=== PATIENT | male | born 1980 | race Caucasian/White ===

== ENCOUNTER 2016-04-22 12:10 | Day surgery (SDC) | payer MEDICARE, MEDICAID ==
[~2016-04-22] VITALS: Ht 205.7 cm; Wt 165.9 kg
[~2016-04-22 12:10] MED LIST: ALEVE PO; ATARAX50 MG PO; CEPHALEXIN500 M1 PO; DAZIDOX10 MG PO; DESYREL 50MG50 MG PO; DESYREL DIVIDO150 M1; ELAVIL100 MG; FENTANYL 100MCG TOP; FLEXERIL; FLOMAX 0.40.4 MG/CAP PO; HCTZ 25MG TAB25 MG PO; LAMISIL250 M1; LASIX 40MG TABL40 MG PO; LEXAPRO20 MG; LORTAB 7.5/5001 TAB PO; LYRICA 50MG CAP50 MG PO; MAG-OX 400400 MG/TAB PO; MIRALAX PA17 GM/Dose PO; NO HOME MEDICATIONS; PERCOCET 325 MG1 TA2 PO; PERCOCET 325 MG1 TAB PO; PREDNISONE10 MG; PRINIVIL2.5 MG; PROZAC 20MG20 MG PO; VALIUM 5MG T5 MG/TAB PO; VICODIN 5/5001 UDTAB PO; WELLBUTRIN 100100 MG PO; [UNRECOGNIZED DRUG - REMARK]
[2016-04-22 13:22] VITALS: BP 141/69; PULSE 85; TEMP 99.7
[2016-04-22] MEDS ORDERED: ALTACE 5MG5 MG PO (13:26)
[2016-04-22] MEDS ORDERED: VOLTAREN GEL 1%1 TU TP (13:27)
[2016-04-22 18:00] VITALS: BP 113/66; PULSE 96; TEMP 98
[2016-04-22 18:15] VITALS: BP 107/50; PULSE 93
[2016-04-22] MEDS ORDERED: DAZIDOX10 MG PO (18:26)
[2016-12-22] MEDS ORDERED: PERCOCET 325 MG1 TA3 PO (10:11)
[2016-12-22] MEDS ORDERED: PREDNISONE20 MG PO (10:11)
[2016-12-22] MEDS ORDERED: FLEXERIL 1010 MG/TAB PO (10:11)
== END 2016-04-22 18:40 | disposition home or self-care (01) ==
LOC: SDCO 12:10 → SURG 18:31 → SDCO 18:40
DX: K42.0 Umbilical hernia with obstruction, without gangrene (principal); I10 Essential (primary) hypertension
CPT/HCPCS: OP; C1713; C1781; J0690; J1100; J1170; J1885; J2175; J2270; J2370; J2405; J2704; J2710; J3010; J7120

== ENCOUNTER 2016-07-29 21:02 | Emergency (ER) | payer MEDICARE, MEDICAID ==
[~2016-07-29] VITALS: Ht 205.7 cm; Wt 165.9 kg
[~2016-07-29 21:02] MED LIST changes: +ALTACE 5MG5 MG PO; +VOLTAREN GEL 1%1 TU TP
[2016-07-29 21:06] VITALS: TEMP 99.5
[2016-07-29 21:49] LABS: PH 6 (5-8); SQUAMOUS EPITHELIAL None Seen /hpf; URINE APPEARANCE Clear; URINE BACTERIA None Seen /hpf; URINE BILIRUBIN Negative (NEGATIVE); URINE BLOOD Negative (NEGATIVE); URINE COLOR Yellow; URINE GLUCOSE Negative (NEGATIVE); URINE KETONE Negative (NEGATIVE); URINE RBC 0-2 /hpf; URINE UROBILINOGEN Negative (NEGATIVE); URINE WBC 0-2 /hpf
[2016-07-29 22:17] LABS: BASO # 0.1 (0.0-0.2); BASO % 0.3 % (0.0-2.0); EOS # 0.2 (0.0-0.7); GRAN # 13.1 (1.4-6.5); GRAN % 71.8 % (42.2-75.2); HEMATOCRIT 43.5 % (42.0-52.0); HEMOGLOBIN 14.7 g/dl (13.5-18.0); LYMPH # 3.7 (1.2-3.4); MEAN CELL VOLUME 87 fl (80.0-100.0); MEAN CORPUSCULAR HEMOGLOBIN 30 pg (27.0-31.0); MEAN CORPUSCULAR HGB CONC 34 g/dl (33.0-37.0); MONO # 1.2 (0.1-0.6); MONO % 6.5 % (1.7-9.3); PLATELET COUNT 337 K/mm3 (130-400); RED BLOOD COUNT 4.99 M/mm3 (4.20-5.60); REDCELL DISTRIBUTION WIDTH-CV 12.5 % (11.5-14.5); WHITE BLOOD COUNT 18.3 K/mm3 (4.8-10.8)
[2016-07-29 22:33] LABS: ADJUSTED CALCIUM 9.4 mg/dL (8.4-10.2); ALBUMIN 4.4 gm/dL (3.5-5.0); BILIRUBIN,TOTAL 0.7 mg/dL (0.0-1.0); CALCIUM 9.7 mg/dL (8.4-10.2); CREATININE, serum 0.92 mg/dL (0.66-1.25); POTASSIUM 4.3 mmol/L (3.4-5.0)
[2016-07-29] MEDS ORDERED: CIPRO 500MG TA500 MG PO (23:45)
[2016-07-29] MEDS ORDERED: FLAGYL500 MG PO (23:45)
[2016-07-29] MEDS ORDERED: ZOFRAN ODT4 MG PO (23:45)
[2016-07-29] MEDS ORDERED: PERCOCET 325 MG1 TA2 PO (23:45)
[2016-07-30] LABS: CHLAMYDIA/TRACH by PCR Male NOT DETECTED; Neisseria Gon by PCR Male NOT DETECTED
[2016-07-30 00:01] VITALS: BP 140/82; PULSE 79
[2016-12-22] MEDS ORDERED: FLEXERIL 1010 MG/TAB PO (10:11)
[2016-12-22] MEDS ORDERED: PREDNISONE20 MG PO (10:11)
[2016-12-22] MEDS ORDERED: PERCOCET 325 MG1 TA3 PO (10:11)
== END 2016-07-30 00:01 | disposition home or self-care (01) ==
LOC: COL.ER 21:02
PROVIDERS: Emergency Medicine
DX: K57.32 Diverticulitis of large intestine without perforation or abscess without bleeding (principal)
CPT/HCPCS: J1170; J1885; J7030; Q9967

== ENCOUNTER → 2016-09-02 | Outpatient (CLI) | payer MEDICARE, MEDICAID ==
[~2016-09-02] MED LIST changes: +CIPRO 500MG TA500 MG PO; +FLAGYL500 MG PO; +FLEXERIL 1010 MG/TAB PO; +PERCOCET 325 MG1 TA3 PO; +PREDNISONE20 MG PO; +ZOFRAN ODT4 MG PO
== END ==
LOC: MHCPAIN 08:43
DX: G89.29 Other chronic pain (principal); M47.817 Spondylosis without myelopathy or radiculopathy, lumbosacral region; M54.16 Radiculopathy, lumbar region; M96.1 Postlaminectomy syndrome, not elsewhere classified
CPT/HCPCS: G0463

== ENCOUNTER 2017-03-03 10:59 | Emergency (ER) | payer MEDICARE, MEDICAID ==
[~2017-03-03] VITALS: Ht 195.6 cm; Wt 147.7 kg
[2017-03-03 11:01] VITALS: BP 144/86; TEMP 98.1
[2017-03-03] MEDS ORDERED: D3-5050000 IU (11:26)
[2017-03-03 12:00] LABS: COLLECTION METHOD CLEAN CATCH
[2017-03-03 12:09] LABS: BASO % 0.3 % (0.0-2.0); EOS # 0.1 (0.0-0.7); GRAN # 10.6 (1.4-6.5); GRAN % 73.1 % (42.2-75.2); HEMOGLOBIN 15.8 g/dl (13.5-18.0); LYMPH # 2.7 (1.2-3.4); LYMPH % 18.6 % (20.0-51.0); MEAN CELL VOLUME 89 fl (80.0-100.0); MEAN CORPUSCULAR HEMOGLOBIN 29 pg (27.0-31.0); MEAN CORPUSCULAR HGB CONC 32 g/dl (33.0-37.0); MONO % 6.6 % (1.7-9.3); PLATELET COUNT 349 K/mm3 (130-400); WHITE BLOOD COUNT 14.5 K/mm3 (4.8-10.8)
[2017-03-03 12:15] LABS: MUCOUS Present /lpf; PH 6 (5-8); SQUAMOUS EPITHELIAL None Seen /hpf; URINE APPEARANCE Clear; URINE BACTERIA None Seen /hpf; URINE BILIRUBIN Negative (NEGATIVE); URINE BLOOD Negative (NEGATIVE); URINE COLOR Yellow; URINE GLUCOSE Negative (NEGATIVE); URINE KETONE Negative (NEGATIVE); URINE LEUKOCYTE ESTERASE Negative (NEGATIVE); URINE PROTEIN(semi-quant) Negative (NEGATIVE); URINE RBC 0-2 /hpf; URINE WBC 0-2 /hpf
[2017-03-03 12:21] LABS: ADJUSTED CALCIUM 9.2 mg/dL (8.4-10.2); ALBUMIN 4.8 gm/dL (3.5-5.0); BILIRUBIN,TOTAL 0.9 mg/dL (0.0-1.0); CALCIUM 9.8 mg/dL (8.4-10.2); CREATININE, serum 0.95 mg/dL (0.66-1.25); POTASSIUM 3.9 mmol/L (3.4-5.0); TOTAL PROTEIN 8.5 gm/dL (6.4-8.2)
[2017-03-03 14:00] LABS: CHLAMYDIA/TRACH by PCR Male NOT DETECTED; Neisseria Gon by PCR Male NOT DETECTED
[2017-03-03] MEDS ORDERED: DULCOLAX STOOL100 MG PO (14:06)
[2017-03-03] MEDS ORDERED: CIPRO 500MG TA500 MG PO (14:06)
[2017-03-03] MEDS ORDERED: NORCO 325 MG-51 TAB PO (14:06)
[2017-03-03] MEDS ORDERED: FLAGYL500 MG PO (14:06)
[2017-03-03 14:50] VITALS: PULSE 71
== END 2017-03-03 14:53 | disposition home or self-care (01) ==
LOC: COL.ER 10:59
PROVIDERS: Emergency Medicine
DX: K57.92 Diverticulitis of intestine, part unspecified, without perforation or abscess without bleeding (principal); M54.9 Dorsalgia, unspecified; G89.29 Other chronic pain; Z87.442 Personal history of urinary calculi; Z90.49 Acquired absence of other specified parts of digestive tract
CPT/HCPCS: J1170; J2270; J2405; J7030; Q9967

== ENCOUNTER 2017-11-17 20:38 | Emergency (ER) | payer MEDICARE, MEDICAID ==
[~2017-11-17] VITALS: Ht 205.7 cm; Wt 138.6 kg
[~2017-11-17 20:38] MED LIST changes: +D3-5050000 IU; +DULCOLAX STOOL100 MG PO; +NORCO 325 MG-51 TAB PO
[2017-11-17 20:47] VITALS: TEMP 98
[2017-11-17 21:34] LABS: COLLECTION METHOD CLEAN CATCH
[2017-11-17 21:41] LABS: BASO % 0.3 % (0.0-2.0); EOS # 0.3 (0.0-0.7); EOS % 2.1 % (0-4.0); GRAN # 7.2 (1.4-6.5); GRAN % 56.9 % (42.2-75.2); HEMATOCRIT 43.4 % (42.0-52.0); HEMOGLOBIN 14.4 g/dl (13.5-18.0); LYMPH # 3.8 (1.2-3.4); LYMPH % 30.4 % (20.0-51.0); MEAN CELL VOLUME 88 fl (80.0-100.0); MEAN CORPUSCULAR HEMOGLOBIN 29 pg (27.0-31.0); MEAN CORPUSCULAR HGB CONC 33 g/dl (33.0-37.0); MONO # 1.2 (0.1-0.6); MONO % 9.7 % (1.7-9.3); PLATELET COUNT 300 K/mm3 (130-400); RED BLOOD COUNT 4.96 M/mm3 (4.20-5.60); REDCELL DISTRIBUTION WIDTH-CV 12.7 % (11.5-14.5)
[2017-11-17 21:46] LABS: AMORPHOUS CRYSTAL Present /uL; MUCOUS Present /lpf; PH 8 (5-8); SQUAMOUS EPITHELIAL None Seen /hpf; URINE APPEARANCE Turbid; URINE BACTERIA None Seen /hpf; URINE BILIRUBIN Negative (NEGATIVE); URINE BLOOD Negative (NEGATIVE); URINE COLOR Yellow; URINE GLUCOSE Negative (NEGATIVE); URINE KETONE Negative (NEGATIVE); URINE LEUKOCYTE ESTERASE Negative (NEGATIVE); URINE NITRATE Negative (NEGATIVE); URINE PROTEIN(semi-quant) Negative (NEGATIVE); URINE UROBILINOGEN Negative (NEGATIVE)
[2017-11-17 22:01] LABS: BILIRUBIN,TOTAL 0.4 mg/dL (0.0-1.0); C-REACTIVE PROTEIN 0.7 mg/dL (0.0-0.9); CALCIUM 9.6 mg/dL (8.4-10.2); CREATININE, serum 0.92 mg/dL (0.66-1.25); POTASSIUM 4.4 mmol/L (3.4-5.0); TOTAL PROTEIN 7.5 gm/dL (6.4-8.2)
[2017-11-17 22:09] VITALS: BP 167/95; PULSE 69
[2017-11-17] MEDS ORDERED: FLAGYL500 MG PO (22:14)
[2017-11-17] MEDS ORDERED: CIPRO 500MG TA500 MG PO (22:14)
== END 2017-11-17 22:34 | disposition home or self-care (01) ==
LOC: COL.ER 20:38
PROVIDERS: Emergency Medicine
DX: K57.92 Diverticulitis of intestine, part unspecified, without perforation or abscess without bleeding (principal)

== ENCOUNTER 2018-09-27 09:25 | Inpatient (IN) | payer MEDICARE, MEDICAID ==
[~2018-09-27] VITALS: Ht 205.7 cm; Wt 133.4 kg
[~2018-09-27 09:25] MED LIST changes: +MEDROL 4MG DOSPA4 MG PO; +NORCO 325 MG-7.1 TAB PO; +ULTRAM 50MG TAB50 MG PO
[2018-10-13] VITALS (13 sets, daily range): BP systolic 125–169; BP diastolic 59–87; PULSE 61–93; TEMP 98–99.1
[2018-10-13 10:40] LABS: HEMATOCRIT 40.9 % (42.0-52.0); HEMOGLOBIN 13.1 g/dl (13.5-18.0); MEAN CELL VOLUME 86 fl (80.0-100.0); MEAN CORPUSCULAR HEMOGLOBIN 27 pg (27.0-31.0); MEAN CORPUSCULAR HGB CONC 32 g/dl (33.0-37.0); MEAN PLATELET VOLUME 8.3 fl (7.4-10.4); PLATELET COUNT 333 K/mm3 (130-400); RED BLOOD COUNT 4.78 M/mm3 (4.20-5.60); REDCELL DISTRIBUTION WIDTH-CV 12.4 % (11.5-14.5)
[2018-10-13 10:49] LABS: CALCIUM 9.2 mg/dL (8.4-10.2); POTASSIUM 4.9 mmol/L (3.4-5.0)
--- NOTE | 2018-10-13 17:40 | NUR ---
Patient resting comfortably now. Patient arrived from [facility] to room 343 after receiving report from Risa, Patient arrived to room in severe pain. Airfield Defence Guard dilaudid was set up per orders. Iv to right hand. Zosyn & Ns infusing per orders. He will remains NPO per orders, denies nausea. LILLY drain to bulb suction x2. Paredes to DD, urine yellow tinged. Abdominal Lap site edges well approximated. Scds ble.
--- NOTE | 2018-10-13 21:00 | NUR ---
Patient is alert, sleepy. Has RN ER Dilaudid and IVF infusing to right hand, no redness or swelling. Does have 0.5L/NC oxygen on. Abdomen distended, with hypoactive bowel sounds and robotic sites x4 glued and dry. Has LILLY drains x2 to right lower abdomen, compressed to bulb suction. Is NPO.
--- NOTE | 2018-10-13 23:35 | NUR ---
New Dilaudid PERSONNEL COORDINATOR hung, readings 1.8mg infused, 50 attempts and 9 completed boluses. Patient sleeping, easily roused.
[2018-10-14] VITALS (10 sets, daily range): BP systolic 123–169; BP diastolic 62–79; PULSE 74–93; TEMP 97.9–99
--- NOTE | 2018-10-14 02:15 | NUR ---
Assisted to bathroom, thought he needed to have a BM. Transfers well, with slow gait. No BM and assisted back to bed.
--- NOTE | 2018-10-14 05:50 | NUR ---
Patient has used 6mg of his JDE DEVELOPER Dilaudid, 87 attempts and 30 completed boluses.
[2018-10-14 06:36] LABS: HEMATOCRIT 39.3 % (42.0-52.0); HEMOGLOBIN 12.7 g/dl (13.5-18.0); MEAN CELL VOLUME 86 fl (80.0-100.0); MEAN CORPUSCULAR HEMOGLOBIN 28 pg (27.0-31.0); MEAN CORPUSCULAR HGB CONC 32 g/dl (33.0-37.0); MEAN PLATELET VOLUME 8.4 fl (7.4-10.4); PLATELET COUNT 328 K/mm3 (130-400); RED BLOOD COUNT 4.58 M/mm3 (4.20-5.60); REDCELL DISTRIBUTION WIDTH-CV 12.8 % (11.5-14.5)
[2018-10-14 06:46] LABS: CALCIUM 8.4 mg/dL (8.4-10.2); CREATININE, serum 0.89 (0.66-1.25); POTASSIUM 4.5 mmol/L (3.4-5.0)
[2018-10-14 07:10] LABS: BAND 3 % (0-10); LYMPHOCYTE 13 % (20.0-51.0); NEUTROPHILS 76 % (42.0-75.2)
[2018-10-14 07:12] LABS: PLATELET ESTIMATE NORMAL (NORMAL)
--- NOTE | 2018-10-14 08:00 | NUR ---
Patient in bed resting. Drowsy but arouses to voice, oriented x 3. Shift assessment complete. Friend at bedside. TALEND DEVELOPER infusing per orders to right hand IV. Paredes to dependent drainage with hazy peach urine present. LILLY drains x2 with serosanguinous drainage present. Lap sites x 4 with edges well approximated. Denies further needs at this time.
--- NOTE | 2018-10-14 10:57 | NUR ---
Contacted Dr. Fernandez. Patient c/o burning around catheter would like to have it removed, Urine appers hazy with foul smell. Per Dr. Fernandez, he will be by to see patient later today.
--- NOTE | 2018-10-14 15:30 | NUR ---
SW met with patient to discuss discharge planning and readmit. Patient reports he lives in [place]. His PCP is dr Gill and he obtains his medications from [facility]. Patient did follow up with both his PCP and dr Fernandez after his last admit. He would like a 4ww with seat and is willing to pay if he can get one that will support his height and weight. SW requested a PT eval to see what size of walker he will need. [facility] and [facility] seymour do not have 4ww for his height.
--- NOTE | 2018-10-14 18:04 | NUR ---
Patient has done well throughout the day. Patient drowsy but arouses to voice and touch. Paredes maintained to dependent drainage with hazy urine present in bag. Has been up ambulating in halls with stand by assist and walker. MEDICAL ACCOUNTANT continues to infuse per orders. LILLY drains x 2 with serosanguinous drainage present. Denies further needs at this time. Will report off to mine shifter.
--- NOTE | 2018-10-14 20:10 | NUR ---
AMBULATES IN HALLWAY WITH 1 ASSIST, USES WALKER, SLOW STEADY GAIT.
--- NOTE | 2018-10-14 22:00 | NUR ---
Patient in bed, complains of burning in his stomach, Pepcid 20mg given earlier. Has Lap sites x4 D/I. Has LILLY drains x2 with serous fluid draining. Paredes catheter with orange urine and thick sediment noted. IVF infusing to right hand without redness or swelling, has STRETCHER OPERATOR Dilaudid as needed, not using as frequently as yesterday. Is alert and oriented.
[2018-10-15] VITALS (9 sets, daily range): BP systolic 143–160; BP diastolic 70–77; PULSE 83–89; TEMP 97.3–98.9
--- NOTE | 2018-10-15 01:34 | NUR ---
Has moderate soft jean stool, complains of gas and walks in hallway at this time.
[2018-10-15 06:43] LABS: HEMATOCRIT 40.3 % (42.0-52.0); HEMOGLOBIN 12.5 g/dl (13.5-18.0); MEAN CELL VOLUME 88 fl (80.0-100.0); MEAN CORPUSCULAR HEMOGLOBIN 27 pg (27.0-31.0); MEAN CORPUSCULAR HGB CONC 31 g/dl (33.0-37.0); MEAN PLATELET VOLUME 8.7 fl (7.4-10.4); PLATELET COUNT 399 K/mm3 (130-400); RED BLOOD COUNT 4.57 M/mm3 (4.20-5.60); REDCELL DISTRIBUTION WIDTH-CV 12.8 % (11.5-14.5)
[2018-10-15 06:47] LABS: CALCIUM 8.7 mg/dL (8.4-10.2); CREATININE, serum 0.86 (0.66-1.25); POTASSIUM 4.4 mmol/L (3.4-5.0)
--- NOTE | 2018-10-15 08:00 | NUR ---
Patient in bed resting. Alert and oriented x 3. Shift assessment complete. Lap sites x4, edges well approximated. LILLY x2 with serous fluid present. Paredes to dependent drainage with hazy spike urine present in bag. BURR PICKER infusing to right hand. Patient states pain 5/10 to abdomen. Denies further needs at this time.
--- NOTE | 2018-10-15 10:30 | NUR ---
Discontinued Paredes catheter, Removed 10 ml of fluid from balloon. Tolerated procedure well. Denies further needs at this time.
--- NOTE | 2018-10-15 11:52 | NUR ---
SW found a walker for patient online. He has mccabe and will have family take it and get a visa card loaded and bring it back for social services manager tomorrow to use to order it for him. Will follow up tomorrow
--- NOTE | 2018-10-15 17:50 | NUR ---
Patient has done well this afternoon. Has been up ambulating with PT, uses walker. LILLY drains with serous fluid present. Continues to use APPOINTMENT COORDINATOR for pain control. Is passing gas and having BMs today. Denies further needs at this time. Will report off to night shift supervisor.
--- NOTE | 2018-10-15 21:00 | NUR ---
PT REACHED OUT TO NURSE AND ASKED IF NURSE COULD CALL HIS GIRLFRIEND TO TELL HER WE THINK HE IS GOING TO LIVE. PROVIDED INSTRUCTIONS TO PT ON HOW TO USE PHONE.
--- NOTE | 2018-10-15 21:00 | NUR ---
PT RESTING IN BED. NO RESP DISTRESS. METAL TUBE CUTTER DILAUDID INTACT. PT USING FOR PAIN RELIEF. PT MOVING AROUND WELL. UP TO BR. VOIDING W/O DIFFICULTY.
--- NOTE | 2018-10-16 01:00 | NUR ---
PT CALLED FOR NURSE. PT RELATED HE NEEDED VALIUM FOR ABD SPASMS AND IF HE DOESNT GET IT HIS ABD MUSCLES WILL RUPTURE AND HE WILL HAVE TO GO TO EMERGENCY SURGERY. THEN PT REVEALED HE NEEDED IT TO SLEEP. PT REPORTED DR CORONA PRESCRIBES VALIUM 5MG QD AND HE FILLS HIS PRESCRIPTIONS AT [facility]. THIS IS NOT ON RX LIST. PT EDUCATION REGARDING UNCLAIMED PROPERTY OFFICER DILAUDID MIXED WITH VALIUM WILL DECREASE HIS RESPIRATORY STATUS.
[2018-10-16 03:15] VITALS: BP 156/76; PULSE 81; TEMP 98.4
--- NOTE | 2018-10-16 05:03 | NUR ---
PT LAYING IN BED. PANICKING. HAVING GAS PAINS. PT REPORTS HAS BEEN HAVING DIARRHEA ALL NIGHT AND NOW HE CANT GET ANYTHING OUT. PT HADNT REPORTED DIARRHEA TO ANY STAFF ABOUT HIS COMPLAINTS. PT REPORTS HE "CANT DO KEGALS TO MOVE THE POOP INTO THE LOWER CHAMBER" THEN IT BLOCKED. ENC PT TO CALM. ATTEMPTED TO PROVIE RATIONALE FOR ABD CRAMPING. HE HAD SCHEDULED [place] LAST NIGHT. ENC TO WALK IN MEIER OR SIT IN RECLINER AND GENTLY ROCK BACK AND FORTH. KEEP USING CREDIT REFERENCE CLERK. PT AMB TO BR. HAD SMALL LOOSE BROWN STOOL. REQUEST SOMETHING BE PUT INTO RECTAL AREA TO EXPELL AIR. PT REFUSES TO WALK OR ROCK.
[2018-10-16 07:22] VITALS: BP 164/80; PULSE 88; TEMP 98.4
[2018-10-16 08:00] VITALS: BP 164/40; PULSE 88
--- NOTE | 2018-10-16 08:00 | NUR ---
Patient sleeping, rouses with some effort when spoken to or touched. CONTENT ANALYST in place per order. Patient complains of stool impaction, states that he feels the same as he did when his bowel was perforated, and he is concerned that he will have to have surgery again. Patient also requests a consult with pain management, stating he would like to have his nerve stimulator removed so he could have an MRI. Informed patient that these requests will be passed on to his physician.
--- NOTE | 2018-10-16 09:30 | NUR ---
Administered PRN suppository per order. Patient tolerated procedure well, patient instructed to report bowel movement results. Denies further needs at this time.
--- NOTE | 2018-10-16 11:46 | NUR ---
Visited, listened, provided spiritual care, and prayed with the patient.
[2018-10-16 11:52] VITALS: BP 164/73; PULSE 77; TEMP 98.2
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
== END 2018-10-16 17:13 | disposition left against medical advice (07) | DRG 344 ==
LOC: INPTSU 10-13 08:33 → SURG 10-13 11:30
PROVIDERS: ADMIT Surgery
PROC: 0D9N4ZZ Drainage of Sigmoid Colon, Percutaneous Endoscopic Approach (ICD-10-PCS; 2018-10-13)
PROC: 8E0W4CZ Robotic Assisted Procedure of Trunk Region, Percutaneous Endoscopic Approach (ICD-10-PCS; 2018-10-13)
PROC: 0W9G4ZZ Drainage of Peritoneal Cavity, Percutaneous Endoscopic Approach (ICD-10-PCS; principal; 2018-10-13 11:30)
DX: K57.20 Diverticulitis of large intestine with perforation and abscess without bleeding (principal); K65.0 Generalized (acute) peritonitis; R18.8 Other ascites; I10 Essential (primary) hypertension; G89.29 Other chronic pain
CPT/HCPCS: A4314; A9284; J1170; J1650; J2270; J2405; J2543; J2704; J3010; J7030; J7120; Q9967

== ENCOUNTER 2018-10-16 17:05 | Inpatient (IN) | payer MEDICARE, MEDICAID ==
[~2018-10-16] VITALS: Ht 205.7 cm; Wt 133.3 kg
[2018-10-16 19:05] LABS: BASO % 0.2 % (0.0-2.0); EOS # 0.2 (0.0-0.7); EOS % 1.6 % (0-4.0); GRAN # 7.4 (1.4-6.5); GRAN % 62.8 % (42.2-75.2); HEMOGLOBIN 11.4 g/dl (13.5-18.0); LYMPH # 3.2 (1.2-3.4); LYMPH % 26.7 % (20.0-51.0); MEAN CELL VOLUME 84 fl (80.0-100.0); MEAN CORPUSCULAR HEMOGLOBIN 27 pg (27.0-31.0); MEAN CORPUSCULAR HGB CONC 32 g/dl (33.0-37.0); MEAN PLATELET VOLUME 8.6 fl (7.4-10.4); MONO % 8.2 % (1.7-9.3); PLATELET COUNT 366 K/mm3 (130-400); RED BLOOD COUNT 4.19 M/mm3 (4.20-5.60); REDCELL DISTRIBUTION WIDTH-CV 12.4 % (11.5-14.5)
[2018-10-16 19:06] LABS: HEMATOCRIT 35.3 % (42.0-52.0)
[2018-10-16 19:18] LABS: ALBUMIN 3.2 gm/dL (3.5-5.0); BILIRUBIN,TOTAL 0.8 mg/dL (0.0-1.0); C-REACTIVE PROTEIN 7.3 mg/dL (0.0-0.9); CALCIUM 8.7 mg/dL (8.4-10.2); CREATININE, serum 0.64 (0.66-1.25); POTASSIUM 4.1 mmol/L (3.4-5.0); TOTAL PROTEIN 7.2 gm/dL (6.4-8.2)
[2018-10-16 20:30] VITALS: BP 157/80; PULSE 92; TEMP 98.7
--- NOTE | 2018-10-16 21:00 | NUR ---
PT RE-ADMITTED TO FLOOR AFTER LEAVING AMA. DRESSING REMAINS INTACT TO ABDOMEN. BOTH LILLY DRAINS INTACT. SEE 5 PAGE ADMISSION ASSESSMENT.
[2018-10-16 23:57] VITALS: BP 152/80; PULSE 79; TEMP 98.7
[2018-10-17 04:00] VITALS: BP 145/86; PULSE 72; TEMP 99
[2018-10-17 07:10] VITALS: BP 149/92; PULSE 74; TEMP 98.4
--- NOTE | 2018-10-17 10:01 | NUR ---
DELGADO met with the patient to discuss a discharge plan. The pt lives in [place] with his two kids and his partner. The pt uses a cane and reports independence with ADLs. The pt's PCP is Dr. Gill and pt receives his medications from [facility] with no difficulties. The pt does not have advanced directives in the EMR and was not interested in obtaining a DPOA-HC form. The pt plans to return home upon discharge. There are no additional needs at this time.
--- NOTE | 2018-10-17 11:30 | NUR ---
Patient is doing ok this am. He is emotional about being in the hospital and apparently having relationship problems. He asked for a wheel chair to be able to go to the garden area. Explained he can not leave the 3rd floor and anytime he leaves the room he has to have a staff member with him. He asked why and explained that since he left yesterday and came back he can not leave the room alone. He verbalized understanding. He stated he will not do that again. Denies nausea. He continues to have pain in his abdomen. Volume given for muscle spasms to abdomen. Encouraged him to walk in the hallways though. No other changes at this time. Call light within reach.
[2018-10-17 11:59] VITALS: BP 148/87; PULSE 66; TEMP 97.9
[2018-10-17 15:13] VITALS: BP 133/70; PULSE 65; TEMP 98.5
--- NOTE | 2018-10-17 18:02 | NUR ---
Patient has been doing fine this afternoon. Pain has been well controlled. He wants to shower but explained he has to wait until the drain is discontinued. He was able to wash up today though. He has ambulated twice in hallways with staff. No other changes at this time. Call light within reach.
[2018-10-17 19:33] VITALS: BP 145/81; PULSE 76; TEMP 98.2
[2018-10-17 23:19] VITALS: BP 155/78; PULSE 68; TEMP 98.1
[2018-10-18 03:43] VITALS: BP 155/86; PULSE 66; TEMP 98.1
--- NOTE | 2018-10-18 03:54 | NUR ---
RESTING QUIETLY NOW. PERCOCET FOR PAIN. PT WAS, EARLIER, c/o TESTICULAR PAIN. PT GIVEN PERCOCET AND AN ICE BAG. LILLY DRAIN INTACT.
[2018-10-18 08:17] VITALS: BP 147/82; PULSE 65; TEMP 97.8
--- NOTE | 2018-10-18 08:52 | NUR ---
Patient requesting pain medication, reviewed with him he had a tab at 0615, he may not have any other pain medication until 1015. Ice pack provided for his "balls", which is his source of pain. Patient eating breakfast, frustrated with low fiber diet. Abdomen soft, lap site edges well approximated. Les to compression. Iv antibibioitc to Left upper arm. Family at bedside.
--- NOTE | 2018-10-18 10:40 | NUR ---
Stratton visiting with patient
[2018-10-18 11:10] VITALS: BP 148/78; PULSE 75; TEMP 97.9
--- NOTE | 2018-10-18 11:34 | NUR ---
First visit from the mechanist. No needs right now.
--- NOTE | 2018-10-18 14:23 | NUR ---
Patient sitting up in bed eating lunch. rounded, orders obtained. Patient medication with ultram & mortin for pain per orders. He reports minimal pain relief from percocet. New drg applied to LILLY drain site, Lilly drain striped. Patient talking to his mother on the phone now, she has gone home for the day
[2018-10-18 14:52] VITALS: BP 133/71; PULSE 65; TEMP 98.1
--- NOTE | 2018-10-18 15:42 | NUR ---
DELGADO met with the patient to follow-up on reason for leaving AM. The patient reports that he had a family emergency and had to get home. He states that he still plans to return home with his fimildred, Cortney, and his two children upon discharge. He states his children are thirteen and [id number] and that they are both staying with their grandparents right now. SW addressed the 4WW he was interested in getting during his last hospital stay. The patient reports that he just plans on shopping around for one on his own. No other identified needs at this time, but SW to continue to follow.
--- NOTE | 2018-10-18 19:03 | NUR ---
Patient up ambulating the halls independently, patient has not mentioned pain this afternoon. bedside report to janet rn
--- NOTE | 2018-10-18 19:45 | NUR ---
Patient ambulating in hallways, back to room for IV antibiotic. Has SL to left upper arm without redness or swelling. Reports pain to scrotum, has ice pack in place.
--- NOTE | 2018-10-18 20:25 | NUR ---
Medicated with Tramadol and Ibuprofen for pain 8/10 to scrotum and lower abdomen.
[2018-10-18 20:42] VITALS: BP 149/73; PULSE 74; TEMP 98.1
[2018-10-18 23:55] VITALS: BP 104/77; PULSE 62; TEMP 98.1
[2018-10-19 03:44] VITALS: BP 141/84; PULSE 56; TEMP 97.6
--- NOTE | 2018-10-19 05:25 | NUR ---
Medicated with Tramadol 100mg and Ibuprofen 400mg po for pain to scrotum and lower abdomen. Ice pack provided for scrotal pain. IV antibiotic infusing without problem.
[2018-10-19 07:05] LABS: HEMOGLOBIN 10.4 g/dl (13.5-18.0); MEAN CELL VOLUME 85 fl (80.0-100.0); MEAN CORPUSCULAR HEMOGLOBIN 27 pg (27.0-31.0); MEAN CORPUSCULAR HGB CONC 32 g/dl (33.0-37.0); MEAN PLATELET VOLUME 8.2 fl (7.4-10.4); PLATELET COUNT 387 K/mm3 (130-400); RED BLOOD COUNT 3.81 M/mm3 (4.20-5.60); REDCELL DISTRIBUTION WIDTH-CV 12.3 % (11.5-14.5)
[2018-10-19 07:19] LABS: CALCIUM 8.9 mg/dL (8.4-10.2); CREATININE, serum 0.77 (0.66-1.25); POTASSIUM 3.9 mmol/L (3.4-5.0)
--- NOTE | 2018-10-19 07:24 | NUR ---
report from Myla POP.
[2018-10-19 07:37] VITALS: BP 140/88; PULSE 65; TEMP 98
[2018-10-19 07:46] LABS: HEMATOCRIT 32.4 % (42.0-52.0)
--- NOTE | 2018-10-19 10:01 | NUR ---
PT UP INDEPENDENTLY IN MEIER. AMBULATED MORE THAN 100 FT. RETURNED TO ROOM.
[2018-10-19 12:09] VITALS: BP 146/80; PULSE 74; TEMP 97.5
--- NOTE | 2018-10-19 15:13 | NUR ---
The patient is to discharge back home today, 10/19. DELGADO presented and explained the IM form to the patient. The patient verbalized understanding, signed, and he was provided a copy. The patient then asked DELGADO about how to go about getting a new cane. DELGADO discussed going through a [employer] company or how the [facility] on [address] has donated equipment. The patient reports that he would be interested in going through [facility] on [address]. DELGADO contacted [facility] on [address] and they report that they do have canes and will set some aside for the patient to choose from. DELGADO updated the patient and he reports he will go there today after he discharges. No additional needs at this time.
--- NOTE | 2018-10-19 16:06 | NUR ---
DISCHARGE INSTRUCTIONS REVIEWED WITH PT. QUESTIONS SOLICITED AND ANSWERED. PT TAKEN AMBULATORY TO FRONT BY STAFF.
== END 2018-10-19 15:30 | disposition home or self-care (01) | DRG 392 ==
LOC: COL.ER 17:05 → SURG 18:11 → COL.ER 18:11 → SURG 10-19 15:30
PROVIDERS: Emergency Medicine; ADMIT Surgery
DX: K57.20 Diverticulitis of large intestine with perforation and abscess without bleeding (principal); I10 Essential (primary) hypertension; G89.29 Other chronic pain
CPT/HCPCS: J1170; J2405; J2543; J7030

== ENCOUNTER 2018-11-03 15:48 | Inpatient (IN) | payer MEDICARE, MEDICAID ==
[~2018-11-03] VITALS: Ht 205.7 cm; Wt 126.7 kg
[2018-11-03 17:30] VITALS: BP 112/63; PULSE 82; TEMP 98.8
[2018-11-03] MEDS ORDERED: AMOXICILLIN 8751 TAB PO (18:17)
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
[2018-11-03 20:05] VITALS: BP 131/66; PULSE 75; TEMP 98.3
[2018-11-03 23:32] VITALS: BP 134/71; PULSE 77; TEMP 98.2
[2018-11-04] VITALS (7 sets, daily range): BP systolic 94–136; BP diastolic 46–77; PULSE 65–74; TEMP 97.8–98.7
--- NOTE | 2018-11-04 05:56 | NUR ---
Patient has rested intermittently overnight. Patient is alert and oriented while awake, PRN pain medication given per order. Patient requested a sleep aid, administered ordered melatonin per order. IVF continue to infuse per order. Patient ambulated in the halls several times prior to HS. Patient has remained afebrile overnight. Patient is currently resting, no needs at this time, call light within reach.
[2018-11-04 07:21] LABS: HEMOGLOBIN 10.4 g/dl (13.5-18.0); MEAN CELL VOLUME 86 fl (80.0-100.0); MEAN CORPUSCULAR HEMOGLOBIN 27 pg (27.0-31.0); MEAN CORPUSCULAR HGB CONC 32 g/dl (33.0-37.0); MEAN PLATELET VOLUME 8.4 fl (7.4-10.4); PLATELET COUNT 345 K/mm3 (130-400); RED BLOOD COUNT 3.81 M/mm3 (4.20-5.60); REDCELL DISTRIBUTION WIDTH-CV 13.1 % (11.5-14.5)
[2018-11-04 07:22] LABS: HEMATOCRIT 32.8 % (42.0-52.0)
[2018-11-04 07:28] LABS: CALCIUM 8.9 mg/dL (8.4-10.2); CREATININE, serum 0.86 (0.66-1.25); POTASSIUM 3.9 mmol/L (3.4-5.0)
[2018-11-04 07:57] LABS: EOSINOPHIL 1 % (0-4); LYMPHOCYTE 19 % (20.0-51.0); NEUTROPHILS 73 % (42.0-75.2); PLATELET ESTIMATE NORMAL (NORMAL)
[2018-11-04 07:58] LABS: HYPOCHROMIA 1+
--- NOTE | 2018-11-04 08:00 | NUR ---
Patient in bed resting. Alert and oriented x3. Shift assessment complete. Previous lap sites with edges well approximated. Fluids infusing via pump to left hand. States relief of pain after dilaudid administration. Denies further needs at this time.
--- NOTE | 2018-11-04 12:09 | NUR ---
Initial visit; Patient appears to be in an altered mental status, Tin Assorter listened and wished him healing.
--- NOTE | 2018-11-04 16:36 | NUR ---
DELGADO met with patient to discuss discharge planning. Patient reports he lives independently at home with his fiance and childrens. Patient reports he will need a new four wheeled walker. Patient understands that his insurance will likely not cover the cost of the walker and he is agreeable to private paying for it. SW will assist patient with ordering a walker that meets his [facility] needs online. Patient's does not currently use home health services but will likely require a home health nurse after his surgery. DELGADO provided medicare.gov resource list to review with his fimildred. DELGADO will continue to follow.
--- NOTE | 2018-11-04 16:45 | NUR ---
Contacted Dr. Fernandez patient states that he is willing to proceede with procedure. Spoke with Dr. Plascencia clinic nurse patient is scheduled for tomorrow 11/05/18 at 2:30. Bowel prep to start today. Educated patient on bowel prep. Denies further needs at this time.
--- NOTE | 2018-11-04 18:13 | NUR ---
Patient has done well throughout the day. Has been up ambulating throughout the day, independently. Steady gait. Continues to complain of pain 9/10 to back and groin. Medications given per orders. Patient inappropriate with staff. Denies further needs at this time. will report off to heel attacher.
--- NOTE | 2018-11-04 19:55 | NUR ---
PATIENT AWAKE, DRINKING BOWEL PREP. REPORTS PAIN TO LOWER ABDOMEN, 8/10, MEDICATED WITH NORCO 7.5MG 1 TAB AT THIS TIME. IV TO LEFT HAND WITH IVF INFUSING WITHOUT REDNESS OR SWELLING.
--- NOTE | 2018-11-04 20:35 | NUR ---
REPORTS CONTINUED ABDOMINAL PAIN, DILAUDID 0.5MG IV NOW.
--- NOTE | 2018-11-04 21:34 | NUR ---
AMBULATING IN HALLWAY WITH FAMILY, HAS EPIGASTRIC/DIAPHRAGM DISCOMFORT. DRINKING BOWEL PREP IN PREPARATION FOR SURGERY TOMORROW. IV SITE TO LEFT HAND WITHOUT REDNESS OR SWELLING.
[2018-11-05] VITALS (18 sets, daily range): BP systolic 119–135; BP diastolic 57–76; PULSE 59–79; TEMP 98.2–98.6
--- NOTE | 2018-11-05 00:05 | NUR ---
PATIENT TAKING SHOWER.
--- NOTE | 2018-11-05 00:35 | NUR ---
REPORTS PAIN TO ABDOMEN 11/13, MEDICATED WITH DILAUDID 1MG IV NOW. HAS RETURNED TO BED AFTER SHOWER, IVF INFUSING TO LEFT HAND IV SITE WITHOUT REDNESS OR SWELLING.
--- NOTE | 2018-11-05 05:45 | NUR ---
COMPLAINS OF ABDOMINAL PAIN, 8/10 TO LOWER ABDOMEN. DILAUDID 1MG IV GIVEN.
--- NOTE | 2018-11-05 06:14 | NUR ---
PATIENT HAS CLEAR STOOL AT THIS TIME.
[2018-11-05 06:30] LABS: HEMOGLOBIN 10.1 g/dl (13.5-18.0); MEAN CELL VOLUME 85 fl (80.0-100.0); MEAN CORPUSCULAR HEMOGLOBIN 27 pg (27.0-31.0); MEAN CORPUSCULAR HGB CONC 32 g/dl (33.0-37.0); MEAN PLATELET VOLUME 8.6 fl (7.4-10.4); PLATELET COUNT 322 K/mm3 (130-400); RED BLOOD COUNT 3.73 M/mm3 (4.20-5.60)
[2018-11-05 06:39] LABS: HEMATOCRIT 31.8 % (42.0-52.0)
[2018-11-05 06:45] LABS: CALCIUM 9.1 mg/dL (8.4-10.2); CREATININE, serum 0.72 (0.66-1.25)
--- NOTE | 2018-11-05 07:15 | NUR ---
appears to be sleeping, bedside shift report received from DONN Lanza
--- NOTE | 2018-11-05 07:45 | NUR ---
Dr Fernandez notified that patient is having clear liquid stools, will not given am dose of miralax
--- NOTE | 2018-11-05 08:05 | NUR ---
appears to be dozing, aroused and questioned regarding bowel movements, he states they are clear as did the nurse during the night, full assessment completed, see interventions for further info, up to bathroom independently, denies needs at this time, has gauze with tegaderm covered dressing to right lower abd auqdrant from old drain site that is CD&I
--- NOTE | 2018-11-05 09:10 | NUR ---
in bed and appears to be sleeping, lights off, eyes closed, resp quiet and easy
--- NOTE | 2018-11-05 10:00 | NUR ---
ambulating in galindo indepenently, now back to bed and c/o pain 11/13, medicated with dilaudid 1mg slow IV
--- NOTE | 2018-11-05 10:40 | NUR ---
resting in recliner talking on phone, denies needs
--- NOTE | 2018-11-05 12:15 | NUR ---
c/o pain and medicated wtih hydrocodone 7.5mg 1 tab and explained to him it is too early for dilaudid, verbalizes understanding, consent signed for surgery
--- NOTE | 2018-11-05 13:15 | NUR ---
prepped for going to surgery,
--- NOTE | 2018-11-05 13:45 | NUR ---
to surgery per bed
--- NOTE | 2018-11-05 14:47 | NUR ---
SW met with patient before surgery to follow up about home health choice. Patient reviewed medicare.gov resource list and chose [facility]. SW will fax a referral. SW also provided the four wheeled walker website for patient to purchase a walker that meets his height requirement.
--- NOTE | 2018-11-05 16:46 | NUR ---
remains in surgery
--- NOTE | 2018-11-05 18:40 | NUR ---
returned to room per bed from PACU, awake and alert, bedside shift report given to DONN Lanza
--- NOTE | 2018-11-05 20:00 | NUR ---
PATIENT VISITING WITH FAMILY. IV ZOSYN INFUSING AT THIS TIME TO LEFT HAND SITE. NEW IV STARTED TO RIGHT HAND BY MARISOL POP. PATIENT HAS BERNARD TO BSD WITH YELLOW URINE. MIDLINE ABDOMINAL INCISION D/I, LEFT COLOSTOMY WITH BEEFY RED STOMA, NO OUTPUT.
--- NOTE | 2018-11-05 20:11 | NUR ---
BLOWER ROOM ATTENDANT CONNECTED TO LEFT HAND SITE WITH IVF OF LR INFUSING AT 100CC/HR. PATIENT EDUCATED ON USAGE OF BLOWER ROOM ATTENDANT. SL TO RIGHT HAND WITHOUT REDNESS OR SWELLING, WILL USE FOR NEXT ANTIBIOTIC DOSE. TAKING ICE CHIPS SPARINGLY.
[2018-11-06] VITALS (10 sets, daily range): BP systolic 115–137; BP diastolic 52–78; PULSE 62–72; TEMP 97.5–98.3
--- NOTE | 2018-11-06 00:17 | NUR ---
NEW SYRINGE OF IV DILAUDID REPLACED IN BEE ROBBER. PATIENT USING OFTEN, DOZING FREQUENTLY, REMAINS ROUSABLE.
--- NOTE | 2018-11-06 02:49 | NUR ---
Patient awake, wants to walk in hallway and "stretch my spine". Ambulates with supervision past surgical nurses station and back to room with slow steady gait. Does well, back to bed.
--- NOTE | 2018-11-06 06:20 | NUR ---
COMPLAINS OF "HEARTBURN", MEDICATED WITH ZOFRAN AT THIS TIME. NEW SACK FILLER SYRINGE CONNECTED. HAS GREEN LIQUID STOOL IN OSTOMY BAG.
--- NOTE | 2018-11-06 19:09 | NUR ---
Patient has had few complaints today. Patient ambulatedin halls with staff twice. Patient has not complained of pain, did state he had gas related discomfort, informed patient continued ambulation will be the best thing to relieve gas pain. Patient also complained of acid reflux, prn medications were ordered and given. Patient has denied further needs, call light within reach.
[2018-11-07] VITALS (10 sets, daily range): BP systolic 120–162; BP diastolic 59–70; PULSE 65–96; TEMP 97.7–98.9
--- NOTE | 2018-11-07 02:27 | NUR ---
Patient complaining of mid-back pain several times tonight. PRN Tylenol given per reqeuest. Noted to be effective as patient is sleeping well. MARKET DEVELOPMENT MANAGER continues. Paredes present and draining spike urine. Incisions covered with clean, dry, and intact guaze dressing. Patient ambulated to medical unit and back. Will continue to monitor patient. Tolerating clears well.
[2018-11-07 09:30] LABS: MEAN CELL VOLUME 89 fl (80.0-100.0); MEAN CORPUSCULAR HGB CONC 31 g/dl (33.0-37.0); MEAN PLATELET VOLUME 8.7 fl (7.4-10.4); PLATELET COUNT 368 K/mm3 (130-400); RED BLOOD COUNT 3.44 M/mm3 (4.20-5.60); REDCELL DISTRIBUTION WIDTH-CV 13.2 % (11.5-14.5)
[2018-11-07 09:59] LABS: HEMATOCRIT 30.5 % (42.0-52.0); HEMOGLOBIN 9.3 g/dl (13.5-18.0); MEAN CORPUSCULAR HEMOGLOBIN 27 pg (27.0-31.0)
[2018-11-07 10:05] LABS: BAND 5 % (0-10); EOSINOPHIL 1 % (0-4); LYMPHOCYTE 37 % (20.0-51.0); NEUTROPHILS 50 % (42.0-75.2); PLATELET ESTIMATE NORMAL (NORMAL)
--- NOTE | 2018-11-07 17:59 | NUR ---
Patient has rested intermittently during the day. Patient has complained of pain several times today, CONTINUITY MANAGER in place per order. Patient is at times very drowsy and unable to complete a conversation, but reports that his pain is largely uncontrolled. Patient complains of pain in his back, feet, ribs, and groin. Dressing to midline and deyanira site was changed. Gauze to midline had small amounts of bloody drainage on it, but no active bleeding was observed. Dressing to deyanira site had some dried bloody drainage as well. Gauze and Hypafix applied to incisions, patient reported severe pain with dressing change and asked for his CONTINUITY MANAGER to be increased; will pass request on to surgeon. Patient is currently resting in recliner, call light within reach.
--- NOTE | 2018-11-07 19:00 | NUR ---
SHIT REPORT RECEIVED FROM BUNNY Scott WAS REPORTED BY BUNNY THAT PT HAS REFUSED AMB. AND WAS REPORTEDLY PULLING TAPE LOOSE ON LT IV SITE. NEW ORDER TO DC JOANA.
--- NOTE | 2018-11-07 19:30 | NUR ---
PT RESTING IN RECLINER. USING STEWARD/STEWARDESS NIGHT. A&O. PT WANTS A CHANGE IN PAIN MED OR AN INCREASE IN DOSEAGE D/T ABD MUSCLE SPASMS. ENC PATIENT TO AMB IN MEIER. NEEDS TO INCREASE ACTIVITY TO GET BETTER. PT AGUMENTATIVE. CALLS THIS NURSE "HONEY". PT MESSING WITH TAPE ON LT IV SITE. ENC PT NOT TO UNDO TAPE. CALL FOR NURSE IF NEEDS ADJUSTMENTS. PT VERBALIZED UNDESTANDING.
--- NOTE | 2018-11-07 21:00 | NUR ---
PT CALM AND COOPERATIVE. ATE 30% OF EVENING MEAL.- PT JUST PIECING OFF OF TRAY. CLEANED UP ROOM. PREPARED BED FOR PT TO SLEEP IN. PT HAS HAD MANY LITTLE COMPLAINTS BUT HAS BEEN LESS RESTLESS SINCE BEGINNING OF SHIFT.
--- NOTE | 2018-11-07 21:28 | NUR ---
FC DC'D AFTER PT AMB IN MEIER. ENC PO FLUIDS. NOTIFY STAFF IF VOIDS IN URINAL.
--- NOTE | 2018-11-07 22:00 | NUR ---
TOOK MELATONIN FOR SLEEP. READJUSTED AIR IN MATTRESS. REFUSED SCD'S & VOLTAREN OINTMENT TO BACK. PT INDEPENDENT IN ROOM. STEADY GAIT. EXPELLED AIR FROM COLOSTOMY BAG. DOES HAVE SMALL AMT OF GREEN SOFT UNFORMED STOOL IN COLOSTOMY BAG. PT DENIES ANYONE HAS DONE ANY TEACHING. INSTUCTOR WILL COME TOMORROW.
--- NOTE | 2018-11-07 23:14 | NUR ---
PT NOTIFIED NURSE OF FIRST VOID AFTER FC DC'D. 125CC CINTHYA URINE. PT RESTING IN BED. DENIES NEEDS AT THIS TIME.
[2018-11-08] VITALS (9 sets, daily range): BP systolic 109–148; BP diastolic 54–76; PULSE 66–92; TEMP 97.4–99.4
--- NOTE | 2018-11-08 04:43 | NUR ---
LOW GRADE TEMP 99.2. ENC USE OF INCENTIVE SPIROMETER. ABLE TO PULL 1500CC WITH CUING ON PROPER USE. EMPTIED 250CC OF SEMI LIQUID GREEN STOOL FROM COLOSTOMY. LG AMT FLATUS.
--- NOTE | 2018-11-08 06:32 | NUR ---
PT HAS RESTED WELL THROUGH THE NIGHT AFTER PT TOOK MELATONIN. PT VOIDED TWICE SINCE F/C DC'D. ADEQUATE UO. ZOSYN INFUSING TO RT HAND IV SITE.
--- NOTE | 2018-11-08 06:33 | NUR ---
PT STILL HAVING MOD OF FLATUS FROM COLOSTOMY. STOMA STILL PALE PIMK.
--- NOTE | 2018-11-08 08:50 | NUR ---
Patient in bed resting. Alert and oriented x 3. Shift assessment complete. Midline incision with gauze is CDI. Previous J tube site to right lower quadrant with gauze is CDI. Colostomy to left lower quadrant with output present. Int to right hand. Fluids and MANAGEMENT CONSULTANT infusing to right hand IV. Denies pain or further needs at this time.
--- NOTE | 2018-11-08 11:27 | NUR ---
Dr. Fernandez in to see patient. LOADING MACHINE ADJUSTER interval changed per order.
--- NOTE | 2018-11-08 18:43 | NUR ---
Patient has done well throughout the day. Continues to have liquid output from ostomy. Ostomy appears red and beefy. ORIENTATION & MOBILITY SPECIALIST continues to infuse per orders. Denies pain or further needs at this time. Will report off to dairy and food laboratory assistant.
--- NOTE | 2018-11-08 19:30 | NUR ---
SHIFT REPORT FROM VERONICA POP. REPORTED PT BEING SEXUALLY INAPPROPRIATE WITH STAFF. PT RESTING CALMLY IN BED. REIMBURSEMENT REP DILAUDID DECREASED TO Q20 MIN. PT NOT AWARE OF THIS YET. COLOSTOMY WITH PALE GREEN STOOL NOTED. VOIDING W/O DIFFICULTY. ENC AMB IN MEIER TONIGHT. REFUSES SCD'S & VOLTAREN OINTMENT TO BACK. CALL LIGHT IN REACH.
--- NOTE | 2018-11-09 00:19 | NUR ---
PT RESTING IN BED. SL DROWSY. YIELD CLERK DILAUDID CONTINUES. VSS.
[2018-11-09 03:52] VITALS: BP 140/73; PULSE 88; TEMP 98.5
--- NOTE | 2018-11-09 05:45 | NUR ---
PT HAS SLEPT ALMOST THE WHOLE SHIFT IN BED WITH SCD'S ON. PT TELLS STORIES OF [place]. TASSEL MAKER CONTROLLING PAIN AT INCREASED INTERVAL OF 20MIN.
--- NOTE | 2018-11-09 06:22 | NUR ---
DILAUDID CAREGIVER ASSISTED LIVING VIAL COMPLETED.- DC'D. STARTED NORCO 7.5MG 1 TAB GIVEN.
[2018-11-09 08:08] VITALS: BP 143/59; PULSE 80; TEMP 99
--- NOTE | 2018-11-09 08:12 | NUR ---
Patient had previously complained of pain. Additional half tab of [place] was given along with motrin. stated pain was a 9, tolerable level a 6. encouraged activity and ambulation to help move 'gas' pain. provider was notified of pain and norco was changed to roxicodone. patient requested to take tylenol instead of motrin due to gerd/reflux.
--- NOTE | 2018-11-09 10:31 | NUR ---
Patient up and was ambulating the halls & seemed to do well. He is sitting up in bed eating mashed potatoes. He is requesting pain medication, rating pain 8/10. Roxicodone for pain per orders. Will monitor. closely.
[2018-11-09 11:31] VITALS: BP 139/63; PULSE 73; TEMP 98
--- NOTE | 2018-11-09 12:01 | NUR ---
Follow-up visit; Patient responded to Dial Buffer's encouragement as he walked in the galindo. has spent time with the patient prior and following his surgical procedure.
--- NOTE | 2018-11-09 14:39 | NUR ---
Patient up ambulating halls, requested a change in diet. notified & orders obtained for general diet. Iv to Int. Pain seems better managed with Oxicodone at this time
--- NOTE | 2018-11-09 15:50 | NUR ---
Patient up to chair. alert and oriented x4. states that his pain is a 6 or 7. displays phsyical cues of pain, grimacing, wincing, guarding. patient transferred independently to bed. audible bowel sounds during movement. roxicodone 10 mg was given PO for pain. HOB elevated. patient reports no other needs at this time.
[2018-11-09 17:08] VITALS: BP 142/76; PULSE 68; TEMP 98.1
[2018-11-09 20:16] VITALS: BP 145/78; PULSE 91; TEMP 98.5
--- NOTE | 2018-11-09 20:30 | NUR ---
Patient ambulating in hallway with steady gait. Is alert and oriented x4. Has SL to left hand without redness or swelling. Back in room patient requesting pain meds for 8/10 abdominal pain. Medicated with Oxycodone 10mg and Tylenol 650mg po now. Has colostomy to left abd. with brown stool noted. Has midline with rusty, no drsg. Has bandaid to old drain site to right lower abd. Patient emptying own colostomy.
[2018-11-09 23:37] VITALS: BP 131/56; PULSE 73; TEMP 98.6
--- NOTE | 2018-11-10 00:35 | NUR ---
Patient sleeping in recliner. Rates pain 7/10 to lower abdomen, medicated with Oxycodone 10mg po now. IV Zosyn infusing to left IV site without redness or swelling.
[2018-11-10 04:22] VITALS: BP 129/54; BP 135/69; PULSE 61; PULSE 86; TEMP 97.8; TEMP 98.1
--- NOTE | 2018-11-10 05:56 | NUR ---
Patient asking to be put back on IVF. He doesn't think he is able to tolerate a change of diet as his colostomy has had little output during the night. Denies nausea or vomiting, abdomen is soft and bowel sounds are active. Encouraged oral fluid intake and to resume using the urinal for accurate output measurement.
--- NOTE | 2018-11-10 07:19 | NUR ---
bedside shift report received from DONN Lanza
[2018-11-10 07:28] VITALS: BP 142/78; PULSE 70; TEMP 98.7
--- NOTE | 2018-11-10 08:30 | NUR ---
in bed and appears to be sleeping, lights off, eyes closed, resp quiet and easy
--- NOTE | 2018-11-10 10:13 | NUR ---
up and taking a shower
--- NOTE | 2018-11-10 10:20 | NUR ---
tolerated shower well but c/o pain and medicated with hydrocodone 7.5mg 1 tab, full assessment completed, see interventions for further info, denies other needs at this time
--- NOTE | 2018-11-10 11:43 | NUR ---
Dr Fernandez in to see patient, will plan discharge later today, Jeffery Hung APRN also in to see patient at this time
--- NOTE | 2018-11-10 12:18 | NUR ---
c/o pain to abdomen and back, medicated with roxicodone 10mg po
[2018-11-10 12:40] VITALS: BP 145/76; PULSE 74; TEMP 98.2
--- NOTE | 2018-11-10 13:30 | NUR ---
DELGADO met with patient to discuss discharge. Patient will discharge home today. DELGADO presented IM to patient. He signed and was provided a copy. DELGADO faxed discharge orders to [facility] for long-term/ostomy care.
--- NOTE | 2018-11-10 13:40 | NUR ---
discharge instructions given to patient, verbalizes understanding,
--- NOTE | 2018-11-10 13:48 | NUR ---
discharged per WC
== END 2018-11-10 13:48 | disposition home health service (06) | DRG 330 ==
LOC: SURG 15:48
PROVIDERS: Surgery; ADMIT Surgery
PROC: 0DTN0ZZ Resection of Sigmoid Colon, Open Approach (ICD-10-PCS; principal; 2018-11-05 14:30)
PROC: 0DQ80ZZ Repair Small Intestine, Open Approach (ICD-10-PCS; 2018-11-05 14:30)
PROC: 0D1M0Z4 Bypass Descending Colon to Cutaneous, Open Approach (ICD-10-PCS; 2018-11-05 14:30)
DX: K57.20 Diverticulitis of large intestine with perforation and abscess without bleeding (principal); K91.71 Accidental puncture and laceration of a digestive system organ or structure during a digestive system procedure; G89.29 Other chronic pain; Y83.8 Other surgical procedures as the cause of abnormal reaction of the patient, or of later complication, without mention of misadventure at the time of the procedure; Y92.234 Operating room of hospital as the place of occurrence of the external cause
CPT/HCPCS: A4314; A9284; J1100; J1170; J1650; J1885; J2250; J2405; J2543; J2704; J3010; J7120

== ENCOUNTER → 2018-11-16 | Outpatient (CLI) | payer MEDICARE, MEDICAID ==
[~2018-11-16] MED LIST changes: +AMOXICILLIN 8751 TAB PO; +MELADOX NATURAL3 MG PO; +TYLENOL 500MG500 MG PO
== END ==
LOC: COL.RAD 13:15
DX: N20.0 Calculus of kidney (principal); Z90.49 Acquired absence of other specified parts of digestive tract
CPT/HCPCS: Q9967

== ENCOUNTER → 2018-11-17 | Outpatient (CLI) | payer MEDICARE, MEDICAID ==
[~2018-11-17] VITALS: Ht 205.7 cm; Wt 122.3 kg
[2018-11-17] VITALS (14 sets, daily range): BP systolic 128–175; BP diastolic 66–84; PULSE 70–82
[2018-11-17 08:50] LABS: HEMATOCRIT 30.4 % (42.0-52.0); HEMOGLOBIN 9.4 g/dl (13.5-18.0); MEAN CELL VOLUME 84 fl (80.0-100.0); MEAN CORPUSCULAR HEMOGLOBIN 26 pg (27.0-31.0); MEAN CORPUSCULAR HGB CONC 31 g/dl (33.0-37.0); PLATELET COUNT 592 K/mm3 (130-400); RED BLOOD COUNT 3.62 M/mm3 (4.20-5.60); REDCELL DISTRIBUTION WIDTH-CV 13.7 % (11.5-14.5)
[2018-11-17 09:10] LABS: CALCIUM 9.6 mg/dL (8.4-10.2); CREATININE, serum 0.73 (0.66-1.25); POTASSIUM 3.9 mmol/L (3.4-5.0)
--- NOTE | 2018-11-17 09:10 | NUR ---
PT TAKEN TO CT AMMBULATORY. PLACED ONTO CT TABLE. MONITORING EQUIPMENT PLACED AND IMAGES TAKEN.
--- NOTE | 2018-11-17 09:20 | NUR ---
1 MG VERSED AND 50 MCG FENTANYL GIVEN IVSP
--- NOTE | 2018-11-17 09:40 | NUR ---
VERSED 0.5 MG AND FENTANYL 25 MCG GIVEN SIVP
--- NOTE | 2018-11-17 10:10 | NUR ---
DRAIN INPLACE AND PURULENT DRAINAGE OF <100 CC. PT TRANSFERED HISSELF TO WHEELCHAIR WITH ASSIST. BROUGHT INTO RAD HOLDING AND TRANSFERS TO RECLINER. GIVEN SNACK. PT HAD RECIEVED ZOFRAN FOR NAUSEA IN CT. BROUGHT INTO ROOM. BOTH GIVEN INSTRUCTIONS ON THE DRAIN AND WRITTEN INFORMATION TO TAKE HOME. PT TO SEE DR CORTEZ AND ALFONSO QUINN TODAY/TOMORROW. THEY WILL FOLLOW UP WITH THEM FOR CAARE OF DRAIN. SITE IS CDI WITH GAUZE AND TEGADERM COVERING. SMALL AMT OF PURULENT DRAINAGE NOTED IN TUBING.
--- NOTE | 2018-11-17 10:40 | NUR ---
PT WAS TAKEN TO POV VIA WHEELCHAIR. ASSISTED INSIDE AND LEAVES WITH
== END ==
LOC: COL.RAD 08:00
PROVIDERS: Surgery
DX: K65.1 Peritoneal abscess (principal)
CPT/HCPCS: J2250; J2405; J3010

== ENCOUNTER → 2018-11-18 | Outpatient (CLI) | payer MEDICARE, MEDICAID | LOC: ZCOL.LAB 16:11 | DX: Z01.89 Encounter for other specified special examinations (principal) ==

== ENCOUNTER → 2019-01-04 | Outpatient (CLI) | payer MEDICARE, MEDICAID | LOC: SUN.CLI 08:22 | DX: Z76.89 Persons encountering health services in other specified circumstances (principal); Z71.3 Dietary counseling and surveillance; Z09 Encounter for follow-up examination after completed treatment for conditions other than malignant neoplasm; Z93.3 Colostomy status ==

== ENCOUNTER 2019-11-05 22:58 | Emergency (ER) | payer MEDICARE, MEDICAID ==
[~2019-11-05] VITALS: Ht 175.3 cm; Wt 145.5 kg
[2019-11-05 23:13] VITALS: BP 153/97; TEMP 98.6
[2019-11-06 01:08] LABS: BASO # 0.1 (0.0-0.2); BASO % 0.4 % (0.0-2.0); EOS # 0.5 (0.0-0.7); EOS % 4.5 % (0-4.0); GRAN # 5.9 (1.4-6.5); GRAN % 51.8 % (42.2-75.2); HEMATOCRIT 45.3 % (42.0-52.0); HEMOGLOBIN 15.2 g/dl (13.5-18.0); LYMPH # 3.8 (1.2-3.4); LYMPH % 33.1 % (20.0-51.0); MEAN CELL VOLUME 87 fl (80.0-100.0); MEAN CORPUSCULAR HEMOGLOBIN 29 pg (27.0-31.0); MEAN CORPUSCULAR HGB CONC 34 g/dl (33.0-37.0); MEAN PLATELET VOLUME 8.8 fl (7.4-10.4); MONO # 1.1 (0.1-0.6); MONO % 9.8 % (1.7-9.3); PLATELET COUNT 321 K/mm3 (130-400); RED BLOOD COUNT 5.24 M/mm3 (4.20-5.60); REDCELL DISTRIBUTION WIDTH-CV 12.4 % (11.5-14.5)
[2019-11-06 01:17] LABS: ALANINE AMINOTRANSFERASE 56 U/L (4-49); ALBUMIN 4.5 gm/dL (3.5-5.0); ALKALINE PHOSPHATASE 78 U/L (50-136); ANION GAP 9 mmol/L (7-16); AST,SGOT 38 U/L (15-37); BILIRUBIN,TOTAL 0.5 mg/dL (0.0-1.0); BLOOD UREA NITROGEN 14 mg/dL (9-20); C-REACTIVE PROTEIN 0.7 mg/dL (0.0-0.9); CALCIUM 9.8 mg/dL (8.4-10.2); CARBON DIOXIDE 24 mmol/L (22-30); CHLORIDE 104 mmol/L (98-107); CREATININE, serum 0.84 (0.66-1.25); GLUCOSE 98 mg/dL (74-106); POTASSIUM 4.3 mmol/L (3.4-5.0); SODIUM 137 mmol/L (137-145); TOTAL PROTEIN 8.6 gm/dL (6.4-8.2)
[2019-11-06 01:33] LABS: TROPONIN-I < 0.012 ng/mL (0.000-0.035)
[2019-11-06] MEDS ORDERED: MEDROL 4MG DOSPA4 MG PO (02:15)
[2019-11-06] MEDS ORDERED: PERCOCET 325 MG1 TA2 PO (02:16)
[2019-11-06 02:30] VITALS: PULSE 91
== END 2019-11-06 02:37 | disposition home or self-care (01) ==
LOC: COL.ER 22:58
PROVIDERS: Nurse Practitioner
DX: M54.12 Radiculopathy, cervical region (principal); G89.29 Other chronic pain; M54.5 Low back pain; F17.290 Nicotine dependence, other tobacco product, uncomplicated
CPT/HCPCS: J1170

== ENCOUNTER 2020-01-03 14:40 | Inpatient (IN) | payer MEDICARE, MEDICAID ==
[~2020-01-03] VITALS: Ht 205.7 cm; Wt 157.5 kg
[2020-01-25] VITALS (10 sets, daily range): BP systolic 139–185; BP diastolic 76–103; PULSE 65–92; TEMP 97.6–99
--- NOTE | 2020-01-25 09:00 | NUR ---
Patient refuses Gabapentin and Celebrex. States that they cause him to have increased and anxiety and they are not good for him. Notified Dr. Fernandez and anesthesia.
[2020-01-25] MEDS ORDERED: ZYRTEC 10MG10 MG PO (09:20)
[2020-01-25] MEDS ORDERED: FLEXERIL 1010 MG/TAB PO (09:20)
[2020-01-25 09:21] LABS: BASO % 0.4 % (0.0-2.0); EOS # 0.7 (0.0-0.7); EOS % 5.9 % (0-4.0); GRAN # 6.5 (1.4-6.5); GRAN % 57.7 % (42.2-75.2); HEMATOCRIT 44.5 % (42.0-52.0); LYMPH # 3.1 (1.2-3.4); LYMPH % 27.4 % (20.0-51.0); MEAN CELL VOLUME 87 fl (80.0-100.0); MEAN CORPUSCULAR HEMOGLOBIN 29 pg (27.0-31.0); MEAN CORPUSCULAR HGB CONC 34 g/dl (33.0-37.0); MEAN PLATELET VOLUME 8.6 fl (7.4-10.4); MONO # 0.9 (0.1-0.6); MONO % 8.2 % (1.7-9.3); PLATELET COUNT 315 K/mm3 (130-400); RED BLOOD COUNT 5.11 M/mm3 (4.20-5.60); REDCELL DISTRIBUTION WIDTH-CV 12.8 % (11.5-14.5)
[2020-01-25] MEDS ORDERED: FLONASE NASAL S16 GM NS (09:21)
[2020-01-25 09:32] LABS: ALBUMIN 4.7 gm/dL (3.5-5.0); BILIRUBIN,TOTAL 0.9 mg/dL (0.0-1.0); CALCIUM 9.4 mg/dL (8.4-10.2); CREATININE, serum 0.88 (0.66-1.25); POTASSIUM 3.9 mmol/L (3.4-5.0); TOTAL PROTEIN 8.5 gm/dL (6.4-8.2)
--- NOTE | 2020-01-25 17:24 | NUR ---
Patient arrived to floor at about 1700. Patient is drowsy. Rating pain at 2 on a 0-10 scale. Denies nausea. Dressing to abdomen is C/D/I. Oriented patient to room. Call light within reach. Paredes secured to leg, urine is spike and clear. Will continue to monitor.
--- NOTE | 2020-01-25 21:00 | NUR ---
Pt. sitting up in bed at this time. Pt. is A&OX3, assessment complete. IV to lt. hand patent, IV fluids infusing per orders. Abd. lap sites x5 well approximated. Lt. abd. colostomy takedown site CDI with gauze. Pt. had hi BP's, Dr. Fernandez notified, new order received. Pt. ambulated in the halls >330 feet. Pt. has a steady gait, and use walker and standby assist. Pt. denies further needs, call light within reach.
[2020-01-26 04:20] VITALS: BP 153/61; PULSE 66; TEMP 99.2
[2020-01-26 07:15] LABS: HEMATOCRIT 40.8 % (42.0-52.0); HEMOGLOBIN 13.3 g/dl (13.5-18.0)
[2020-01-26 07:26] LABS: CALCIUM 9.1 mg/dL (8.4-10.2); CREATININE, serum 1.07 (0.66-1.25); MAGNESIUM 2.1 mg/dL (1.6-2.3); PHOSPHOROUS 3.8 mg/dL (2.5-4.5); POTASSIUM 4.6 mmol/L (3.4-5.0)
[2020-01-26 07:34] VITALS: BP 181/74; PULSE 79; TEMP 98.2
--- NOTE | 2020-01-26 08:35 | NUR ---
PATIENT SHIFT ASSESSMENT COMPLETED AT THIS TIME. PATIENT IS DROWSY BUT A&OX4. VSS. SHALLOW BREATHING NOTED. UPPER LUNG LOBES CLEAR UPON AUSCULTATION AND LUNG BASES DIMINISHED BILATERALLY. BOWEL SOUNDS ACTIVE ALL FOUR QUADRANTS. PATIENT TOLERATING CLEAR LIQUIDS WITHOUT ANY COMPLAINTS OF N/V. ABDOMINAL LAP SITES X5 EXTRUSION PRESS ADJUSTER WITH EDGES WELL APPROXIMATED. LEFT-SIDED ABDOMINAL COLOSTOMY TAKE-DOWN SITE DRESSED WITH GAUZE AND HYPAFIX WITH OLD DRAINAGE PRESENT ON DRESSING. BERNARD CATHETER DRAINING HAZY CINTHYA URINE. SCD'S TO BLE. CALL LIGHT WITHIN REACH. PATIENT EDUCATED ON ORDERS FOR BERNADR CATHETER REMOVAL. PATIENT REFUSES TO ALLOW THIS NURSE TO DISCONTINUE THE CATHETER AT THIS TIME. WILL DISCUSS WITH SURGEON.
--- NOTE | 2020-01-26 09:04 | NUR ---
SW met with the patient to discuss discharge plan. The patient lives in [place] with his fiance, Cortney Moreno (ph#[phone]), and two out of his six children. He reports independence with ADLs and has a cane and walker. The patient's PCP is Dr. Queenie Hayes and he receives his medications at [facility]. He reports no difficulties obtaining his meds. The patient does not have a DPOA-HC and he was not interested in completing a DPOA-HC at this time. The patient states that he is not , and his children are under the age of 18. His mother, Yumiko (ph#[phone]), is his next-of-kin. The patient states that he is okay with this and that his mother knows his wishes. SW discussed home health services. The patient had [facility] in the past. The patient states that if needed, he would be open to home health through them again. SW contacted the patient's mother, Yumiko, to review d/c plan. Yumiko states that she has no concerns with the patient returning back home, but that she just does not want him being discharged too soon. SW to continue to follow.
--- NOTE | 2020-01-26 09:20 | NUR ---
Initial visit; Patient thanked Changeover Operator for stopping and offering God's blessings.
[2020-01-26 11:00] VITALS: BP 116/58; PULSE 77; TEMP 98.4
--- NOTE | 2020-01-26 13:45 | NUR ---
BERNARD CATHETER DISCONTINUED PER ORDERS. 9 MLS OF STERILE WATER ASPIRATED FROM BALLOON. BALLOON TIP INTACT. PATIENT TOLERATED WELL.
--- NOTE | 2020-01-26 14:21 | NUR ---
PATIENT GIVEN PRN PO PAIN MEDICATION AT THIS TIME. PATIENT ASSISTED HIMSELF BACK TO BED FROM THE CHAIR. PATIENT REPORTS THAT HE VOIDED IN THE BATHROOM. PATIENT EDUCATED TO UTILIZE THE URINAL FOR HIS NEXT VOID TO MAKE SURE HE IS EMPTYING HIS BLADDER SUFFICIENTLY POST BERNARD REMOVAL. PATIENT RESTING IN BED. CALL LIGHT WITHIN REACH. NO NEEDS AT THIS TIME.
[2020-01-26 16:08] VITALS: BP 150/64; PULSE 62; TEMP 98.1
[2020-01-26 19:31] VITALS: BP 141/68; PULSE 75; TEMP 97.8
--- NOTE | 2020-01-26 19:45 | NUR ---
BEDSIDE REPORT GIVEN TO DONN DRIVER.
--- NOTE | 2020-01-26 20:00 | NUR ---
PT RESTING IN BED. NO EVIDENCE OF PAIN. EYES CLOSED. BUT TALKS TO NURSES. APPROPRIATE CONVERSATION AT THIS TIME. NO NEEDS AT THIS TIME. ENC PT TO WEAR CLOTHES SHIRT OR GOWN AND SHORT OVER UNDERWEAR. PT AGREED HE WOULD DO SO.
[2020-01-27 01:21] VITALS: BP 135/69; PULSE 82; TEMP 98.2
[2020-01-27 04:17] VITALS: BP 179/91; PULSE 75; TEMP 98.6
--- NOTE | 2020-01-27 04:20 | NUR ---
PT AWAKE. HAVING ABD PAIN. SEE MAR FOR ROXICODONE GIVEN. ASSISTED TO BR. VOIDED W/O DIFFICULTY SUFFICIENT QUANITIES. ASSISTED TO PUT GOWN ON AND AMB IN HALLS. HAD TO STOP SEVERAL TIMES FOR PAIN. PROVIDED HOT TEA FOR DRY THROAT AND TO COUGH SECRETIONS. PT GELACIO AMB FAIRLY WELL. RETURN TO ROOM AND ASSISTED TO RECLINER. CALL LIGHT IN REACH.
[2020-01-27 06:54] LABS: CREATININE, serum 0.82 (0.66-1.25); MAGNESIUM 1.8 mg/dL (1.6-2.3); PHOSPHOROUS 2.3 mg/dL (2.5-4.5); POTASSIUM 4.6 mmol/L (3.4-5.0)
[2020-01-27 07:32] VITALS: BP 169/81; PULSE 79; TEMP 97.9
--- NOTE | 2020-01-27 08:00 | NUR ---
Patient up ambulating in halls independently.
--- NOTE | 2020-01-27 08:45 | NUR ---
Patient in bed resting. Alert and oriented x 3. Assessment complete. States pain 8/10 to abd, medications given per orderds. Tolerating diet, fluids INT per orders. Lap sites to abdomen with edges well approximated. LLQ previous ostomy site with gauze dressing; has old drainage present. SCDs to BLE. Denies further needs at this time.
--- NOTE | 2020-01-27 10:36 | NUR ---
Patient up ambulating in halls.
[2020-01-27] MEDS ORDERED: ULTRAM 50MG TAB50 MG PO (11:36)
[2020-01-27 12:27] VITALS: BP 164/78; PULSE 73; TEMP 98.2
--- NOTE | 2020-01-27 13:00 | NUR ---
Patient up ambulating in halls.
--- NOTE | 2020-01-27 13:35 | NUR ---
Patient states pain 7/10 to abdomen, medicaitons given per orders. Denies further needs at this time.
[2020-01-27 16:00] VITALS: BP 173/76; PULSE 75; TEMP 98.6
--- NOTE | 2020-01-27 17:58 | NUR ---
Patient has done well throughout the day, independent in room. Has been up ambulating in halls independently in halls with seady gait approximately every 2 hrs. Has requested medications for abdominal pain, medications given per orders. Denies further needs at this time. Will report off to recoil spring winder.
--- NOTE | 2020-01-27 19:43 | NUR ---
PT REPORTS ABD PAIN LEVEL 8. HE RELATED HE WANT DILAUD BECAUSE HE TORE HIMSELF OPEN. NO REPORT OF THIS DURING BEDSIDE SHIFT CHANGE, GAVE ROXICODONE 10MG PO. PT REPORTS HE HAD X2 LOOSE COFFEE GROUNDS BM. REQUESTED TO NOT FLUSH IF HAS ANOTHER. VOIDING CLEAR YELLOW URINE. RESTING IN BED NOW. ENC AMB IN HALLS. CALL LIGHT IN REACH.
[2020-01-27 20:05] VITALS: BP 135/61; PULSE 77; TEMP 99
--- NOTE | 2020-01-27 23:45 | NUR ---
PT AMB IN MEIER. PT WHISPERS WHEN HE TALKS. ITS HURTS TOO MUCH TO TALK. ENC COUGH AND DEEP BREATH. SPLINT ABD WITH PILLOW. TRIED. TAKING PO FLUIDS WELL. PAIN CONTROLLED WITH ORAL PAIN MEDICATIONS. REPORTED BM ON DAYSHIFT. AMB IN HALLS.
[2020-01-28 01:56] VITALS: BP 181/76; PULSE 92; TEMP 99.3
[2020-01-28 04:33] VITALS: BP 160/74; PULSE 90; TEMP 99.2
--- NOTE | 2020-01-28 08:00 | NUR ---
Patient in bed resting. Alert and oriented x 3. Assessment complete. Denies pain at this time. Encouraged ambulation. Abd incisions with edges well approximated. Previous ostomy site with old drainage present. Denies further needs at this time. Encouraged using IS and CDB.
[2020-01-28 08:01] VITALS: BP 147/68; PULSE 72; TEMP 98.2
--- NOTE | 2020-01-28 11:09 | NUR ---
Discharge education provided to patient. Educated on when to call provieder and follow up appointment. Educated on signs and symptoms of infection. INT discontinued, catheter tip intact. Patient also educated on continued use of IS and new medications as well as medication safety. Denies further needs at this time.
--- NOTE | 2020-01-28 11:20 | NUR ---
Patient out by wheelchair with surgical staff.
== END 2020-01-28 11:20 | disposition home or self-care (01) | DRG 331 ==
LOC: INPTSU 01-25 08:27 → SURG 01-25 11:00
PROVIDERS: ADMIT Surgery
PROC: 8E0W4CZ Robotic Assisted Procedure of Trunk Region, Percutaneous Endoscopic Approach (ICD-10-PCS; 2020-01-25)
PROC: 0DSP4ZZ Reposition Rectum, Percutaneous Endoscopic Approach (ICD-10-PCS; principal; 2020-01-25 11:00)
DX: Z43.3 Encounter for attention to colostomy (principal); I10 Essential (primary) hypertension; K43.2 Incisional hernia without obstruction or gangrene
CPT/HCPCS: A4314; A9284; J0330; J1100; J1170; J1650; J1885; J2250; J2405; J2704; J3010; J7120

== ENCOUNTER 2020-06-27 07:37 | Day surgery (SDC) | payer MEDICARE, MEDICAID ==
[~2020-06-27] VITALS: Ht 205.7 cm; Wt 158.2 kg
[2020-06-27] VITALS (10 sets, daily range): BP systolic 144–156; BP diastolic 73–95; PULSE 55–71; TEMP 98.1–98.7
[~2020-06-27 07:37] MED LIST changes: +FLONASE NASAL S16 GM NS; +ZYRTEC 10MG10 MG PO
--- NOTE | 2020-06-27 18:30 | NUR ---
Patient arrived to floor from surgery at 1400. He has been very drowsy since getting back. Denies pain and nausea. He is sitting up eating supper at this time. Continues to be without pain. Reminded him he needs to get up and walk this evening in the hallways, he verbalized understanding. His incisions are well approximated, no drainage. No other changes at this time. Call light within reach.
[2020-06-28 04:25] VITALS: BP 158/78; PULSE 60; TEMP 98.5
--- NOTE | 2020-06-28 05:38 | NUR ---
Patient slept most of the night. PRN tramadol for pain. Tolerating a general diet. Encouraged patient to get up and walk.
[2020-06-28 07:28] VITALS: BP 142/72; PULSE 71; TEMP 98.4
--- NOTE | 2020-06-28 09:33 | NUR ---
SW met with the patient to discuss discharge plan. The patient lives in [place] with his fiance, Cortney Bruce (ph#[phone]), and two children. He reports needing some assistance with ADLs and has a cane. He states that Cortney assists him when needed. The patient's PCP is Dr. Cassius Sol and [facility]. He reports occasional difficulties affording his meds. The patient does not have a DPOA-HC and he was not interested in completing one while here. He states that he is not and that he has three children, but that they are under the age of 18. He states that his mother, Yumiko Quiñones (ph#[phone]), is his next-of-kin. The patient plans to return home with his family upon discharge. No additional needs at this time.
[2020-06-28] MEDS ORDERED: ULTRAM 50MG TAB50 MG PO (11:21)
[2020-06-28 12:10] VITALS: BP 142/80; PULSE 67; TEMP 97.9
--- NOTE | 2020-06-28 13:49 | NUR ---
PT CHRISTIAN FOR RIDE.
--- NOTE | 2020-06-28 17:51 | NUR ---
DISCHARGE INSTRUCTIONS REVIEWED WITH PT. PT LEFT WITH STAFF PER WHEEL CHAIR.
== END 2020-06-28 17:53 | disposition home or self-care (01) ==
LOC: SDCO 07:37 → JCC 14:00 → SDCO 06-28 17:53
DX: K43.2 Incisional hernia without obstruction or gangrene (principal); K21.9 Gastro-esophageal reflux disease without esophagitis; M19.90 Unspecified osteoarthritis, unspecified site; M54.12 Radiculopathy, cervical region; M51.36 Other intervertebral disc degeneration, lumbar region; M79.7 Fibromyalgia; G89.29 Other chronic pain; I10 Essential (primary) hypertension; G47.33 Obstructive sleep apnea (adult) (pediatric); D64.9 Anemia, unspecified; F41.9 Anxiety disorder, unspecified; Z79.899 Other long term (current) drug therapy; Z90.49 Acquired absence of other specified parts of digestive tract; Z87.891 Personal history of nicotine dependence; Z20.822 Contact with and (suspected) exposure to COVID-19; Z83.3 Family history of diabetes mellitus; Z80.51 Family history of malignant neoplasm of kidney; Z80.3 Family history of malignant neoplasm of breast
CPT/HCPCS: OP; C1781; J0360; J0690; J1100; J1885; J2405; J2704; J3010; J7120

== ENCOUNTER 2021-06-23 17:26 | Emergency (ER) | payer MEDICARE, MEDICAID ==
[~2021-06-23] VITALS: Ht 205.7 cm; Wt 151.4 kg
[2021-06-23 17:32] VITALS: TEMP 97.8
[2021-06-23 20:05] VITALS: BP 186/103; PULSE 73
== END 2021-06-23 20:05 | disposition home or self-care (01) ==
LOC: COL.ER 17:26
DX: S62.644A Nondisplaced fracture of proximal phalanx of right ring finger, initial encounter for closed fracture (principal); Z87.891 Personal history of nicotine dependence; W23.0XXA Caught, crushed, jammed, or pinched between moving objects, initial encounter

== ENCOUNTER 2021-09-21 19:54 | Emergency (ER) | payer MEDICARE, MEDICAID ==
[~2021-09-21] VITALS: Ht 205.7 cm; Wt 159.1 kg
[2021-09-21 20:07] VITALS: TEMP 99
[2021-09-21 21:18] LABS: BASO % 0.3 % (0.0-2.0); EOS # 0.5 K/mm3 (0.0-0.7); GRAN # 7.4 K/mm3 (1.4-6.5); GRAN % 64.4 % (42.2-75.2); HEMATOCRIT 41.2 % (42.0-52.0); HEMOGLOBIN 13.5 g/dl (13.5-18.0); LYMPH # 2.6 K/mm3 (1.2-3.4); LYMPH % 22.3 % (20.0-51.0); MEAN CELL VOLUME 87 fl (80.0-100.0); MEAN CORPUSCULAR HEMOGLOBIN 28 pg (27-31); MEAN CORPUSCULAR HGB CONC 33 g/dl (33.0-37.0); MEAN PLATELET VOLUME 8.7 fl (7.4-10.4); MONO % 8.7 % (1.7-9.3); PLATELET COUNT 314 K/mm3 (130-400); RED BLOOD COUNT 4.75 M/mm3 (4.20-5.60); REDCELL DISTRIBUTION WIDTH-CV 12.5 % (11.5-14.5)
[2021-09-21 21:33] LABS: ALBUMIN 3.3 gm/dL (3.5-5.0); BILIRUBIN,TOTAL 0.5 mg/dL (0.2-1.2); CALCIUM 9.1 mg/dL (8.4-10.2); CREATININE, serum 0.84 mg/dL (0.72-1.25); POTASSIUM 3.6 mmol/L (3.5-4.5); TOTAL PROTEIN 7.8 gm/dL (6.2-8.1)
[2021-09-21] MEDS ORDERED: DOXYCYCLINE 10100 MG PO (21:48)
[2021-09-21 22:17] VITALS: BP 137/87; PULSE 78
== END 2021-09-21 22:10 ==
LOC: COL.ER 19:54
PROVIDERS: Physician Assistant
DX: L03.312 Cellulitis of back [any part except buttock and flank] (principal); G89.29 Other chronic pain; Z98.890 Other specified postprocedural states
CPT/HCPCS: J1790

== ENCOUNTER → 2021-09-26 | Outpatient (CLI) | payer MEDICARE, MEDICAID ==
[~2021-09-26] MED LIST changes: +DOXYCYCLINE 10100 MG PO
== END ==
LOC: ZCOL.LAB 13:49
DX: T81.31XA Disruption of external operation (surgical) wound, not elsewhere classified, initial encounter (principal)

== ENCOUNTER 2021-09-27 23:09 | Emergency (ER) | payer MEDICARE, MEDICAID ==
[~2021-09-27] VITALS: Ht 205.7 cm; Wt 160.6 kg
[2021-09-27 23:19] VITALS: BP 156/94; TEMP 98.4
[2021-09-28 03:14] VITALS: PULSE 84
== END 2021-09-28 03:13 | disposition home or self-care (01) ==
LOC: COL.ER 23:09
DX: Z48.01 Encounter for change or removal of surgical wound dressing (principal)

== ENCOUNTER 2023-02-02 04:44 | Observation (INO) | payer MEDICARE, MEDICAID ==
[2023-02-02] VITALS (7 sets, daily range): BP systolic 118–196; BP diastolic 62–109; PULSE 68–79; TEMP 97.7–98
[~2023-02-02] VITALS: Ht 203.2 cm; Wt 169.0 kg
[2023-02-02] MEDS ORDERED: FLONASEALLERGY NS (08:22)
[2023-02-02] MEDS ORDERED: VOLTAREN GEL 1%1 TU TP (08:26)
[2023-02-02 11:06] LABS: COLLECTION METHOD CLEAN CATCH
--- NOTE | 2023-02-02 11:30 | NUR ---
Patient resting in bed. Alert & oriented. Pain treated with dilaudid and managed at this time. Ivf as ordered & Ua sent to lab. Patient educated on importance of using urinal to strain urine. Admission completed. BP elevated. Will monitor
[2023-02-02 11:42] LABS: URINE APPEARANCE Hazy (CLEAR/HAZY); URINE COLOR Amber (YELLOW)
[2023-02-02 11:43] LABS: PH 5.5 (5.0-8.5); SQUAMOUS EPITHELIAL None Seen /hpf (0-10); URINE BLOOD 3+ (NEGATIVE); URINE GLUCOSE Negative (NEGATIVE); URINE KETONE Negative (NEGATIVE); URINE NITRATE Negative (NEGATIVE); URINE PROTEIN(semi-quant) 1+ (NEGATIVE); URINE RBC >50 /hpf (0-2); URINE UROBILINOGEN 0.2 E.U/dL (0.2-1.0)
[2023-02-02 11:44] LABS: URINE BACTERIA None Seen /hpf (NONE SEEN)
--- NOTE | 2023-02-02 17:00 | NUR ---
Patient has remained npo today. Seems to rest comfortably most of the day. Prepared for the OR. NS to gravity. pepcid pre op as ordered. Gavi took patient to [place]. will await his return
[2023-02-02] MEDS ORDERED: ULTRAM 50MG TAB50 MG PO (18:27)
--- NOTE | 2023-02-02 19:00 | NUR ---
Patient arrived to room 322 from PACU via bed. Oriented to room/policy. Discharge criteria covered. Currently vitals are stable. Has voided. Tolerating PO. Will get more post op vitals and then discharge per dr order.
--- NOTE | 2023-02-02 20:00 | NUR ---
DIscharge criteria met. Discharge instructions given both verbal and handwritten. Discussed f/u appt, s/s of infection and home medications. INT to left AC DCd cath intact. Family at bedside for ride home. [facility] in [facility]. bench worker escorted to Medical floor for visit than pushed off paul in wheelchair in stable condition.
== END 2023-02-02 20:00 | disposition home or self-care (01) ==
LOC: COL.ER 04:44 → SURG 08:28
PROVIDERS: Personal Emergency Response Attendant; ADMIT Urology
DX: N20.1 Calculus of ureter (principal); Z87.891 Personal history of nicotine dependence
CPT/HCPCS: C1769; G0378; J0690; J1100; J1170; J1885; J1920; J1940; J2270; J2405; J2704; J3010; J3480; J7030; Q9967

== ENCOUNTER 2023-11-24 07:51 | Emergency (ER) | payer MEDICARE, MEDICAID ==
[~2023-11-24] VITALS: Ht 205.7 cm; Wt 172.7 kg
[~2023-11-24 07:51] MED LIST changes: +FLONASEALLERGY NS
[2023-11-24 08:03] VITALS: TEMP 97.8
[2023-11-24] MEDS ORDERED: NS 1,000 ML IV SCH (08:30)
[2023-11-24] MEDS ORDERED: Morphine 4 MG/ML VIAL IV ONE (08:30)
[2023-11-24] MEDS ORDERED: Ondansetron 4 MG/2 ML VIAL IV ONE (08:30)
[2023-11-24 08:54] LABS: BASO # 0.1 K/mm3 (0.0-0.2); BASO % 0.4 % (0.0-2.0); EOS # 0.5 K/mm3 (0.0-0.7); EOS % 3.5 % (0.0-4.0); GRAN # 8.6 K/mm3 (1.4-6.5); GRAN % 62.4 % (42.2-75.2); HEMATOCRIT 46.1 % (42.0-52.0); HEMOGLOBIN 14.8 g/dl (13.5-18.0); LYMPH # 3.6 K/mm3 (1.2-3.4); LYMPH % 25.9 % (20.0-51.0); MEAN CELL VOLUME 89 fl (80.0-100.0); MEAN CORPUSCULAR HEMOGLOBIN 29 pg (27-31); MEAN CORPUSCULAR HGB CONC 32 g/dl (33.0-37.0); MEAN PLATELET VOLUME 8.7 fl (7.4-10.4); MONO % 7.4 % (1.7-9.3); PLATELET COUNT 330 K/mm3 (130-400); RED BLOOD COUNT 5.19 M/mm3 (4.20-5.60); REDCELL DISTRIBUTION WIDTH-CV 13.3 % (11.5-14.5)
[2023-11-24] MEDS ORDERED: HYDROmorphone 0.5 MG/0.5 ML SYRINGE IV ONE ×2 (09:00→10:00)
[2023-11-24 09:11] LABS: ALBUMIN 3.9 g/dL (3.5-5.0); CALCIUM 9.8 mg/dL (8.4-10.2); CREATININE, serum 1.04 mg/dL (0.72-1.25); POTASSIUM 3.9 mEq/L (3.5-4.5); TOTAL PROTEIN 8.5 g/dl (6.2-8.1)
[2023-11-24] MEDS ORDERED: NS 100 ML IV SCH (09:25)
[2023-11-24] MEDS ORDERED: Iohexol 300 - 100 ML VIAL IV ONE (09:26)
[2023-11-24] MEDS ORDERED: Lido/EPI/Tetrac Gel 3 ML SYRINGE TOP ONE (10:45)
[2023-11-24] MEDS ORDERED: SEPTRA DS 8001 TAB PO (11:26)
[2023-11-24] MEDS ORDERED: NORCO 325 MG-51 TAB PO (11:27)
[2023-11-24 11:34] VITALS: BP 171/105; PULSE 70
== END 2023-11-24 11:47 | disposition home or self-care (01) ==
LOC: COL.ER 07:51
PROVIDERS: Family Medicine
DX: L02.211 Cutaneous abscess of abdominal wall (principal)
CPT/HCPCS: J1170; J2405; J7030; Q9967

== ENCOUNTER → 2023-11-26 | Outpatient (REF) | payer MEDICARE, MEDICAID ==
[~2023-11-26] MED LIST changes: +SEPTRA DS 8001 TAB PO
== END ==
LOC: ZCOL.LAB 17:59
DX: L02.216 Cutaneous abscess of umbilicus (principal)